=== PATIENT | male | born 1955 | race African-American/Black ===

== ENCOUNTER 2018-06-15 16:33 | Emergency (ER) | payer MEDICARE, MEDICAID ==
[~2018-06-15] VITALS: Ht 182.9 cm; Wt 82.0 kg
[~2018-06-15 16:33] MED LIST: ATEN-42 PO; ENAL10TA PO
[2018-06-15] MEDS ORDERED: LIDOCAINE HCL/PF 1% 10 MG/ML 5ML VIAL IJ ONE (18:30)
[2018-06-15 20:12] VITALS: BP 148/85
== END 2018-06-15 20:35 | disposition home or self-care (01) ==
LOC: ER 16:47
DX: S63.252A Unspecified dislocation of right middle finger, initial encounter (principal); I10 Essential (primary) hypertension; V18.0XXA Pedal cycle driver injured in noncollision transport accident in nontraffic accident, initial encounter; Y93.55 Activity, bike riding; Y92.89 Other specified places as the place of occurrence of the external cause
CPT/HCPCS: 26770; 73140; 99284; J3490